=== PATIENT | female | born 1965 | race Caucasian/White ===

== ENCOUNTER 2019-05-21 20:10 | Emergency (ER) | payer OTHER, SELFPAY ==
[~2019-05-21] VITALS: Ht 162.6 cm; Wt 89.1 kg
[2019-05-21] MEDS ORDERED: [UNRECOGNIZED DRUG - OTHER] PO (20:40)
[2019-05-21] MEDS: SODIUM CHLORIDE 0.9% 500 ML IV ONE (22:22)
[2019-05-21] MEDS: METOCLOPRAMIDE HCL 5 MG/ML 2 ML VIAL IVP ONE (22:23)
[2019-05-21] MEDS: ACETAMINOPHEN 500 MG TABLET PO ONE (22:23)
[2019-05-21] MEDS: DiphenhydrAMINE HCL 50 MG/ML VIAL IVP ONE (22:23)
[2019-05-21] MEDS: KETOROLAC TROMETHAMINE 30 MG/ML VIAL IVP ONE (22:23)
[2019-05-21 23:12] VITALS: BP 129/86
== END 2019-05-21 23:28 | disposition home or self-care (01) ==
LOC: EMS 20:11
DX: G43.909 Migraine, unspecified, not intractable, without status migrainosus (principal); I10 Essential (primary) hypertension; F17.210 Nicotine dependence, cigarettes, uncomplicated
CPT/HCPCS: 96374; 96375; 99283; 99406; J1200; J1885; J2765; J7040

== ENCOUNTER 2019-07-24 09:58 | Emergency (ER) | payer OTHER ==
[~2019-07-24] VITALS: Ht 154.9 cm; Wt 90.9 kg
[~2019-07-24 09:58] MED LIST: [UNRECOGNIZED DRUG - OTHER] PO
[2019-07-24] MEDS ORDERED: ONDANSETRON HCL 4 MG/2 ML VIAL IVP ONE (11:00)
[2019-07-24] MEDS ORDERED: SODIUM CHLORIDE 0.9% 1,000 ML IV ONE (11:00)
[2019-07-24] MEDS ORDERED: KETOROLAC TROMETHAMINE 30 MG/ML VIAL IVP ONE (11:00)
[2019-07-24 11:17] LABS: BASOPHILS % (AUTO) 0.7 % (0.0-2.0); HEMOGLOBIN 13.1 g/dL (12.0-16.0); LYMPHOCYTES # (AUTO) 1.6 K/uL (1.0-4.8); LYMPHOCYTES % (AUTO) 25.4 % (22.0-44.0); MEAN CORPUSCULAR HEMOGLOBIN 22.4 pg (26.0-34.0); MEAN CORPUSCULAR HGB CONC 31.3 G/dL (31.0-37.0); MEAN CORPUSCULAR VOLUME 72 fL (80-100); MONOCYTES # (AUTO) 0.4 K/uL (0.1-1.0); MONOCYTES % (AUTO) 7.1 % (2.0-9.0); NEUTROPHILS % (AUTO) 64.8 % (40.0-70.0); PLATELET COUNT (AUTO) 329 K/uL (150-450); RED BLOOD CELL COUNT(AUTO) 5.86 MIL/uL (4.00-5.20); RED CELL DISTRIBUTION WIDTH 17.2 % (11.5-14.5)
[2019-07-24 11:22] LABS: ANION GAP 10 mmol/L (8-16); CALCIUM, TOTAL 8.7 mg/dL (8.8-10.5); CARBON DIOXIDE 24 mmol/L (22-29); CHLORIDE 103 mmol/L (98-107); CREATININE 0.83 mg/dL (0.60-1.30); GLOMERULAR FILTR. RATE CALC > 60 mL/min (>60); GLUCOSE,RANDOM 127 mg/dL (70-110); POTASSIUM 3.3 mmol/L (3.5-5.1); SODIUM SERUM 137 mmol/L (136-145); UREA NITROGEN, BLOOD 12 mg/dL (7-18)
[2019-07-24 11:33] LABS: ALANINE AMINOTRANSFERASE 42 U/L (12-78); ALBUMIN 3.6 g/dL (3.4-5.0); ALKALINE PHOSPHATASE 147 U/L (46-116); ASPARTATE AMINOTRANSFERASE 26 U/L (15-37); BILIRUBIN,TOTAL 0.3 mg/dL (0.1-1.0); HCG,QUANTITATIVE 1 mIU/mL (0-6); LIPASE 77 U/L (73-393); PHOSPHORUS 3.3 mg/dL (2.5-4.9); TOTAL PROTEIN, SERUM 7.9 g/dL (6.4-8.2)
[2019-07-24] MEDS ORDERED: POTASSIUM CHLORIDE 20 MEQ ER TABLET PO ONE (11:45)
[2019-07-24 14:08] LABS: APPEARANCE,URINE CLEAR (CLEAR); BILIRUBIN,URINE NEGATIVE (NEGATIVE); GLUCOSE, URINE (UA) NEGATIVE (NEGATIVE); KETONES,URINE NEGATIVE (NEGATIVE); LEUKOCYTE ESTERASE ,URINE NEGATIVE (NEGATIVE); NITRATE,URINE NEGATIVE (NEGATIVE); OCCULT BLOOD,URINE NEGATIVE (NEGATIVE); PH,URINE 5.5 (5.0-8.0); PROTEIN,URINE NEGATIVE (NEGATIVE); UROBILINOGEN,URINE 0.2 mg/dL (<=1.0)
[2019-07-24 14:41] VITALS: BP 148/78
== END 2019-07-24 14:59 | disposition home or self-care (01) ==
LOC: EMS 09:59
DX: K52.9 Noninfective gastroenteritis and colitis, unspecified (principal); R11.2 Nausea with vomiting, unspecified; I10 Essential (primary) hypertension; F17.210 Nicotine dependence, cigarettes, uncomplicated
CPT/HCPCS: 36415; 80053; 81003; 83690; 83735; 84100; 84702; 85025; 93005; 96361; 96374; 96375; 99284; 99406; J1885; J2405; J7030

== ENCOUNTER 2019-11-29 15:22 | Emergency (ER) | payer OTHER ==
[~2019-11-29] VITALS: Ht 154.9 cm; Wt 200.0 kg
[2019-11-29 18:47] LABS: INFLUENZA TYPE A NEGATIVE FOR TYPE A (NEGATIVE); INFLUENZA TYPE B NEGATIVE FOR TYPE B (NEGATIVE)
[2019-11-29 19:18] VITALS: BP 135/89
== END 2019-11-29 19:21 | disposition home or self-care (01) ==
LOC: EMS 15:23 → EDBD 15:23 → EMS 19:21
DX: J44.9 Chronic obstructive pulmonary disease, unspecified (principal); I10 Essential (primary) hypertension; F17.210 Nicotine dependence, cigarettes, uncomplicated
CPT/HCPCS: 87804; 99406

== ENCOUNTER 2021-03-06 18:25 | Emergency (ER) | payer OTHER ==
[~2021-03-06] VITALS: Ht 152.4 cm; Wt 86.9 kg
[~2021-03-06 18:25] MED LIST changes: +ASPI-1198 PO; +IBUP-1506 PO; +LISI-894 PO; -[UNRECOGNIZED DRUG - OTHER] PO
[2021-03-06] MEDS ORDERED: BENZONATATE 100 MG CAPSULE PO ONE (19:00)
[2021-03-06] MEDS ORDERED: IBUP-1506 PO (19:02)
[2021-03-06 20:54] LABS: BASOPHILS % (AUTO) 0.9 % (0.0-2.0); EOSINOPHILS % (AUTO) 3.3 % (1.0-6.0); HEMATOCRIT 34.5 % (36-46); HEMOGLOBIN 10.5 g/dL (12.0-16.0); LYMPHOCYTES # (AUTO) 2.4 K/uL (1.0-4.8); LYMPHOCYTES % (AUTO) 25.4 % (22.0-44.0); MEAN CORPUSCULAR HEMOGLOBIN 21.3 pg (26.0-34.0); MEAN CORPUSCULAR HGB CONC 30.4 G/dL (31.0-37.0); MEAN CORPUSCULAR VOLUME 70 fL (80-100); MONOCYTES # (AUTO) 0.6 K/uL (0.1-1.0); MONOCYTES % (AUTO) 6.5 % (2.0-9.0); NEUTROPHILS % (AUTO) 63.9 % (40.0-70.0); PLATELET COUNT (AUTO) 329 K/uL (150-450); RED BLOOD CELL COUNT(AUTO) 4.93 MIL/uL (4.00-5.20); RED CELL DISTRIBUTION WIDTH 20.2 % (11.5-14.5)
[2021-03-06] MEDS ORDERED: LEVOFLOXACIN 250 MG TABLET PO ONE (21:00)
[2021-03-06 21:06] LABS: ANION GAP 8 mmol/L (8-16); CALCIUM, TOTAL 8.1 mg/dL (8.8-10.5); CARBON DIOXIDE 27 mmol/L (22-29); CHLORIDE 102 mmol/L (98-107); CREATININE 0.71 mg/dL (0.60-1.30); GLOMERULAR FILTR. RATE CALC > 60 mL/min (>60); GLUCOSE,RANDOM 128 mg/dL (70-110); POTASSIUM 3.5 mmol/L (3.5-5.1); SODIUM SERUM 137 mmol/L (136-145); UREA NITROGEN, BLOOD 11 mg/dL (7-18)
[2021-03-06 21:12] LABS: ALANINE AMINOTRANSFERASE 29 U/L (12-78); ALBUMIN 3.2 g/dL (3.4-5.0); ALKALINE PHOSPHATASE 142 U/L (46-116); ASPARTATE AMINOTRANSFERASE 14 U/L (15-37); BILIRUBIN,TOTAL 0.2 mg/dL (0.1-1.0); TOTAL PROTEIN, SERUM 7.3 g/dL (6.4-8.2)
[2021-03-06 21:19] LABS: B-TYPE NATRIURETIC PEPTIDE 66 pg/mL (0-100)
[2021-03-06] MEDS ORDERED: IOHEXOL 350 MG/ML 100 ML VIAL ONE (22:01)
[2021-03-06] MEDS ORDERED: SODIUM CHLORIDE 0.9% 100 ML ONE (22:01)
[2021-03-06 23:30] VITALS: BP 141/83
[2021-03-06 23:43] LABS: COVID AG,FIA SOURCE NASOPHARYNGEAL
== END 2021-03-07 01:05 | disposition home or self-care (01) ==
LOC: EMS 18:30
DX: J98.11 Atelectasis (principal); Z20.822 Contact with and (suspected) exposure to COVID-19
CPT/HCPCS: 36415; 71046; 71275; 80053; 83880; 84484; 85025; 85379; 87426; 93005; 99285; A9575; G0238; J7050

== ENCOUNTER 2022-01-07 10:24 | Inpatient (IN) | payer OTHER ==
[~2022-01-07] VITALS: Ht 154.9 cm; Wt 87.0 kg
[2022-01-07 11:36] LABS: EOSINOPHILS % (AUTO) 3.3 % (1.0-6.0); HEMATOCRIT 34.1 % (36-46); HEMOGLOBIN 10.7 g/dL (12.0-16.0); LYMPHOCYTES # (AUTO) 1.9 K/uL (1.0-4.8); LYMPHOCYTES % (AUTO) 23.4 % (22.0-44.0); MEAN CORPUSCULAR HEMOGLOBIN 20.2 pg (26.0-34.0); MEAN CORPUSCULAR HGB CONC 31.3 G/dL (31.0-37.0); MEAN CORPUSCULAR VOLUME 65 fL (80-100); MONOCYTES # (AUTO) 0.5 K/uL (0.1-1.0); MONOCYTES % (AUTO) 6.5 % (2.0-9.0); NEUTROPHILS # (AUTO) 5.5 K/uL (1.8-7.7); NEUTROPHILS % (AUTO) 65.8 % (40.0-70.0); PLATELET COUNT (AUTO) 366 K/uL (150-450); RED BLOOD CELL COUNT(AUTO) 5.28 MIL/uL (4.00-5.20); RED CELL DISTRIBUTION WIDTH 19.2 % (11.5-14.5)
[2022-01-07] MEDS ORDERED: ALBUTEROL SULFATE HFA 90 MCG/PUFF 8 GM INHALER IH ONE (11:45)
[2022-01-07 11:54] LABS: ANION GAP 5 mmol/L (8-16); CALCIUM, TOTAL 8.6 mg/dL (8.8-10.5); CARBON DIOXIDE 28 mmol/L (22-29); CHLORIDE 105 mmol/L (98-107); CREATININE 0.72 mg/dL (0.60-1.30); GLOMERULAR FILTR. RATE CALC > 60 mL/min (>60); GLUCOSE,RANDOM 124 mg/dL (70-110); POTASSIUM 3.7 mmol/L (3.5-5.1); SODIUM SERUM 138 mmol/L (136-145); UREA NITROGEN, BLOOD 12 mg/dL (7-18)
[2022-01-07] MEDS ORDERED: GABA-1181 PO (11:55)
[2022-01-07] MEDS ORDERED: SACU1TAB PO (11:55)
[2022-01-07] MEDS ORDERED: FLUT16H NASAL (11:55)
[2022-01-07] MEDS ORDERED: PARO40TA72 PO (11:55)
[2022-01-07] MEDS ORDERED: METF-1211 PO (11:55)
[2022-01-07] MEDS ORDERED: EZET10TA57 PO (11:55)
[2022-01-07] MEDS ORDERED: CHOL100062 PO (11:55)
[2022-01-07] MEDS ORDERED: GABA-529 PO (11:55)
[2022-01-07] MEDS ORDERED: AMLO5TAB66 PO (11:55)
[2022-01-07] MEDS ORDERED: HYDR25TA2 PO (11:55)
[2022-01-07] MEDS ORDERED: METO-416 PO (11:55)
[2022-01-07] MEDS ORDERED: ISOS10TA16 PO (11:55)
[2022-01-07] MEDS ORDERED: ATOR-2 PO (11:55)
[2022-01-07] MEDS ORDERED: QUET25TA36 PO (11:55)
[2022-01-07] MEDS ORDERED: ASPI-1444 PO (11:55)
[2022-01-07 11:59] LABS: ALANINE AMINOTRANSFERASE 24 U/L (12-78); ALBUMIN 3.4 g/dL (3.4-5.0); ALKALINE PHOSPHATASE 191 U/L (46-116); ASPARTATE AMINOTRANSFERASE 18 U/L (15-37); BILIRUBIN,TOTAL 0.2 mg/dL (0.1-1.0); TOTAL PROTEIN, SERUM 7.5 g/dL (6.4-8.2)
[2022-01-07] MEDS ORDERED: ASPIRIN 81 MG CHEWABLE TABLET PO ONE (13:45)
[2022-01-07] MEDS ORDERED: 0.9% SODIUM CHLORIDE 10 ML SYRINGE IVP PRN (15:00)
[2022-01-07] MEDS ORDERED: ACETAMINOPHEN 325 MG TABLET PO PRN ×2 (15:00→16:30)
[2022-01-07] MEDS ORDERED: ONDANSETRON HCL 4 MG/2 ML VIAL IVP PRN ×2 (15:00→16:30)
[2022-01-07 15:04] LABS: COVID AG,FIA SOURCE NASAL SWAB
[2022-01-07] MEDS ORDERED: ALBUTEROL SULFATE HFA 90 MCG/PUFF 8 GM INHALER IH PRN (16:30)
[2022-01-07] MEDS ORDERED: ZOLPIDEM TARTRATE 5 MG TABLET PO PRN (16:30)
[2022-01-07] MEDS ORDERED: HYDROCODONE/ACETAMINOPHEN 5-325 MG TABLET PO PRN (16:30)
[2022-01-07] MEDS ORDERED: BISACODYL 10 MG RECTAL RECTAL SUPPOSITORY PR PRN (16:30)
[2022-01-07] MEDS ORDERED: MAGNESIUM HYDROXIDE SUSPENSION 30 ML UDCUP PO PRN (16:30)
[2022-01-07] MEDS ORDERED: MORPHINE SULFATE 2 MG/ML SYRINGE IVP PRN (16:30)
[2022-01-07] MEDS ORDERED: DEXTROSE 50%-WATER 25 GM/50 ML SYRINGE IVP PRN (21:00)
[2022-01-07] MEDS ORDERED: INSULIN LISPRO 100 UNITS/ML SQ PRN (21:00)
[2022-01-07] MEDS: DOCUSATE SODIUM 100 MG CAPSULE PO SCH (21:33)
[2022-01-07] MEDS: GABAPENTIN 300 MG CAPSULE PO SCH (21:33)
[2022-01-07] MEDS: SACUBITRIL/VALSARTAN 24-26 MG TABLET PO SCH (21:33)
[2022-01-07] MEDS: QUEtiapine FUMARATE 25 MG TABLET PO SCH (21:34)
[2022-01-07 21:36] VITALS: BP 153/77
[2022-01-07 22:06] LABS: GLUCOMETER DEV NAME(LOC) 5N.3; GLUCOSE,POINT OF CARE 138 MG/DL (70-110)
[2022-01-07] MEDS: HEPARIN SODIUM,PORCINE 5,000 UNITS/ML VIAL SQ SCH (23:48)
[2022-01-07 23:58] VITALS: BP 158/58
[2022-01-08 04:10] VITALS: BP 149/69
[2022-01-08 06:26] LABS: BASOPHILS % (AUTO) 0.9 % (0.0-2.0); EOSINOPHILS % (AUTO) 3.8 % (1.0-6.0); HEMATOCRIT 34.2 % (36-46); HEMOGLOBIN 10.5 g/dL (12.0-16.0); LYMPHOCYTES # (AUTO) 2.3 K/uL (1.0-4.8); MEAN CORPUSCULAR HEMOGLOBIN 20.1 pg (26.0-34.0); MEAN CORPUSCULAR HGB CONC 30.6 G/dL (31.0-37.0); MEAN CORPUSCULAR VOLUME 66 fL (80-100); MONOCYTES # (AUTO) 0.4 K/uL (0.1-1.0); MONOCYTES % (AUTO) 6.7 % (2.0-9.0); NEUTROPHILS # (AUTO) 3.7 K/uL (1.8-7.7); NEUTROPHILS % (AUTO) 54.6 % (40.0-70.0); PLATELET COUNT (AUTO) 333 K/uL (150-450); RED BLOOD CELL COUNT(AUTO) 5.21 MIL/uL (4.00-5.20); RED CELL DISTRIBUTION WIDTH 19.2 % (11.5-14.5)
[2022-01-08 06:26] LABS: GLUCOMETER DEV NAME(LOC) 5N.3; GLUCOSE,POINT OF CARE 121 MG/DL (70-110)
[2022-01-08 07:00] LABS: ANION GAP 7 mmol/L (8-16); CALCIUM, TOTAL 8.4 mg/dL (8.8-10.5); CARBON DIOXIDE 27 mmol/L (22-29); CHLORIDE 107 mmol/L (98-107); CREATININE 0.66 mg/dL (0.60-1.30); GLOMERULAR FILTR. RATE CALC > 60 mL/min (>60); GLUCOSE,RANDOM 121 mg/dL (70-110); POTASSIUM 3.7 mmol/L (3.5-5.1); SODIUM SERUM 141 mmol/L (136-145); UREA NITROGEN, BLOOD 15 mg/dL (7-18)
[2022-01-08 07:51] VITALS: BP 168/78
[2022-01-08] MEDS ORDERED: MetFORMIN HCL 500 MG TABLET PO SCH (08:00)
[2022-01-08] MEDS: AmLODIPine BESYLATE 5 MG TABLET PO SCH (08:30)
[2022-01-08] MEDS: HEPARIN SODIUM,PORCINE 5,000 UNITS/ML VIAL SQ SCH ×3 (08:31→23:42)
[2022-01-08] MEDS: HYDROCHLOROTHIAZIDE 25 MG TABLET PO SCH (08:31)
[2022-01-08] MEDS: GABAPENTIN 100 MG CAPSULE PO SCH (08:31)
[2022-01-08] MEDS: ASPIRIN 81 MG DR TABLET PO SCH (08:31)
[2022-01-08] MEDS: PANTOPRAZOLE SODIUM 40 MG DR TABLET PO SCH (08:31)
[2022-01-08] MEDS: EZETIMIBE 10 MG TABLET PO SCH (08:32)
[2022-01-08] MEDS: SACUBITRIL/VALSARTAN 24-26 MG TABLET PO SCH ×2 (08:32→20:22)
[2022-01-08] MEDS: ISOSORBIDE DINITRATE 10 MG TABLET PO SCH (08:32)
[2022-01-08] MEDS: DOCUSATE SODIUM 100 MG CAPSULE PO SCH ×2 (08:32→20:22)
[2022-01-08] MEDS: FLUTICASONE PROPIONATE 50 MCG/SPRAY 16 GM NASAL SPRAY NASAL SCH (08:33)
[2022-01-08 11:44] VITALS: BP 137/64
[2022-01-08 15:00] VITALS: BP 142/70
[2022-01-08 17:31] LABS: GLUCOMETER DEV NAME(LOC) 5N.1C; GLUCOSE,POINT OF CARE 156 MG/DL (70-110)
[2022-01-08 17:46] LABS: GLUCOMETER DEV NAME(LOC) 5N.1C; GLUCOSE,POINT OF CARE 194 MG/DL (70-110)
[2022-01-08 19:53] VITALS: BP 157/76
[2022-01-08 20:16] LABS: GLUCOMETER DEV NAME(LOC) 5N.1C; GLUCOSE,POINT OF CARE 147 MG/DL (70-110)
[2022-01-08] MEDS: QUEtiapine FUMARATE 25 MG TABLET PO SCH (20:22)
[2022-01-08] MEDS: GABAPENTIN 300 MG CAPSULE PO SCH (20:23)
[2022-01-09 05:00] VITALS: BP 128/52
[2022-01-09 06:21] LABS: GLUCOMETER DEV NAME(LOC) 5N.1C; GLUCOSE,POINT OF CARE 136 MG/DL (70-110)
[2022-01-09 07:36] VITALS: BP 147/76
[2022-01-09 09:06] LABS: BASOPHILS % (AUTO) 0.8 % (0.0-2.0); EOSINOPHILS % (AUTO) 4.3 % (1.0-6.0); HEMATOCRIT 35.7 % (36-46); LYMPHOCYTES # (AUTO) 2.3 K/uL (1.0-4.8); LYMPHOCYTES % (AUTO) 35.5 % (22.0-44.0); MEAN CORPUSCULAR HEMOGLOBIN 20.2 pg (26.0-34.0); MEAN CORPUSCULAR HGB CONC 30.9 G/dL (31.0-37.0); MEAN CORPUSCULAR VOLUME 65 fL (80-100); MONOCYTES # (AUTO) 0.4 K/uL (0.1-1.0); NEUTROPHILS # (AUTO) 3.5 K/uL (1.8-7.7); NEUTROPHILS % (AUTO) 53.4 % (40.0-70.0); PLATELET COUNT (AUTO) 335 K/uL (150-450); RED BLOOD CELL COUNT(AUTO) 5.47 MIL/uL (4.00-5.20); RED CELL DISTRIBUTION WIDTH 19.5 % (11.5-14.5)
[2022-01-09 09:16] LABS: ANION GAP 6 mmol/L (8-16); CALCIUM, TOTAL 8.4 mg/dL (8.8-10.5); CARBON DIOXIDE 29 mmol/L (22-29); CHLORIDE 105 mmol/L (98-107); CREATININE 0.78 mg/dL (0.60-1.30); GLOMERULAR FILTR. RATE CALC > 60 mL/min (>60); GLUCOSE,RANDOM 127 mg/dL (70-110); POTASSIUM 3.5 mmol/L (3.5-5.1); SODIUM SERUM 140 mmol/L (136-145); UREA NITROGEN, BLOOD 13 mg/dL (7-18)
[2022-01-09] MEDS: EZETIMIBE 10 MG TABLET PO SCH (09:57)
[2022-01-09] MEDS: GABAPENTIN 100 MG CAPSULE PO SCH (09:57)
[2022-01-09] MEDS: ASPIRIN 81 MG DR TABLET PO SCH (09:57)
[2022-01-09] MEDS: SACUBITRIL/VALSARTAN 24-26 MG TABLET PO SCH (09:57)
[2022-01-09] MEDS: HEPARIN SODIUM,PORCINE 5,000 UNITS/ML VIAL SQ SCH (09:58)
[2022-01-09] MEDS: DOCUSATE SODIUM 100 MG CAPSULE PO SCH (09:58)
[2022-01-09] MEDS: AmLODIPine BESYLATE 5 MG TABLET PO SCH (09:58)
[2022-01-09] MEDS: PANTOPRAZOLE SODIUM 40 MG DR TABLET PO SCH (09:58)
[2022-01-09] MEDS: HYDROCHLOROTHIAZIDE 25 MG TABLET PO SCH (09:58)
[2022-01-09] MEDS: ISOSORBIDE DINITRATE 10 MG TABLET PO SCH (09:59)
[2022-01-09] MEDS: FLUTICASONE PROPIONATE 50 MCG/SPRAY 16 GM NASAL SPRAY NASAL SCH (09:59)
[2022-01-09 11:31] VITALS: BP 151/78
[2022-01-09] MEDS ORDERED: ALBU8HFA IH (13:51)
[2022-01-09 17:41] LABS: GLUCOMETER DEV NAME(LOC) 5S.1B; GLUCOSE,POINT OF CARE 126 MG/DL (70-110)
== END 2022-01-09 14:05 | disposition home or self-care (01) | DRG 203 ==
LOC: EMS 10:24 → EDBD 10:24 → 5S 20:20
PROVIDERS: ADMIT Internal Medicine; ATTEND Internal Medicine
DX: R07.89 Other chest pain (principal); I42.9 Cardiomyopathy, unspecified; J44.1 Chronic obstructive pulmonary disease with (acute) exacerbation; I50.9 Heart failure, unspecified; I11.0 Hypertensive heart disease with heart failure; E11.9 Type 2 diabetes mellitus without complications; D64.9 Anemia, unspecified; E66.9 Obesity, unspecified; E78.5 Hyperlipidemia, unspecified; F17.210 Nicotine dependence, cigarettes, uncomplicated; Z20.822 Contact with and (suspected) exposure to COVID-19; F17.200 Nicotine dependence, unspecified, uncomplicated; Z68.36 Body mass index [BMI] 36.0-36.9, adult; Z79.82 Long term (current) use of aspirin; Z71.6 Tobacco abuse counseling
CPT/HCPCS: 71045; 80048; 80053; 82962; 83880; 84484; 85025; 93005; 93306; 99285; G0378; J1644; J2270; J3535; Q9967; 36415-L1; 36415-TC

== ENCOUNTER 2022-04-01 11:25 | Emergency (ER) | payer OTHER ==
[~2022-04-01] VITALS: Ht 154.9 cm; Wt 90.9 kg
[~2022-04-01 11:25] MED LIST changes: +ALBU8HFA IH; +AMLO5TAB66 PO; -ASPI-1198 PO; +ASPI-1444 PO; +ATOR-2 PO; +CHOL100062 PO; +EZET10TA57 PO; +FLUT16H NASAL; +GABA-1181 PO; +GABA-529 PO; +HYDR25TA2 PO; -IBUP-1506 PO; +ISOS10TA16 PO; -LISI-894 PO; +METF-1211 PO; +METO-416 PO; +PARO40TA72 PO; +QUET25TA36 PO; +SACU1TAB PO
[2022-04-01 11:44] VITALS: BP 158/95
[2022-04-01] MEDS ORDERED: KETOROLAC TROMETHAMINE 30 MG/ML VIAL IM ONE (12:45)
[2022-04-01] MEDS ORDERED: CYCL-448 PO (14:01)
== END 2022-04-01 14:22 | disposition home or self-care (01) ==
LOC: EMS 11:28
DX: M79.18 Myalgia, other site (principal); E78.00 Pure hypercholesterolemia, unspecified; I10 Essential (primary) hypertension; F17.210 Nicotine dependence, cigarettes, uncomplicated; Z90.49 Acquired absence of other specified parts of digestive tract; Z87.09 Personal history of other diseases of the respiratory system
CPT/HCPCS: 99283; 73030; 96372; J1885